=== PATIENT | male | born 1970 | race African-American/Black ===

== ENCOUNTER 2016-07-07 17:53 | Emergency (ER) | payer OTHER ==
[~2016-07-07] VITALS: Ht 177.8 cm; Wt 72.0 kg
[2016-07-07 18:07] VITALS: PULSE 83; RESP 18; TEMP 98.3; O2SAT 99
[2016-07-07] MEDS ORDERED: FERR1TAB36 PO (18:17)
[2016-07-07] MEDS ORDERED: FOLI5CAP PO (18:17)
--- NOTE | 2016-07-07 18:18 | PD ---
HPI Chief Complaint: [place] Act/ Suicidal Attempt Time Seen by Provider: 18:09 Travel History International Travel<30 days: No Contact w/Intl Traveler<30days: No Traveled to known affect area: No History of Present Illness HPI 45-year-old male brought into the emergency department under the [place] act. Patient was said to be found hanging in a motel room trying to choke himself with a bedsheet. Patient was reported by his sister and police responded. Patient found him attempting a himself and gasping for breath. Patient has history of sickle cell anemia but has not had a problem with that in "a long time". He does smoke marijuana but not cigarettes and does not drink alcohol. Patient denies suicidal ideations at this time. He denies any specific medical problems currently other than recent cough productive of clear mucus. He only takes iron and folic acid. He takes no other medications. He has no known drug allergies. [facility] Social History Alcohol Use: No Tobacco Use: No Substance Use: No Allergies-Medications (Allergen,Severity, Reaction): Coded Allergies: No Known Allergies (Unverified , 07/07/16) Reported Meds & Prescriptions Reported Meds & Active Scripts Active Reported Iron (Ferrous Sulfate) 325 Mg Tab 325 Mg PO DAILY Take Folic Acid 5 Mg Cap 1 Mg PO DAILY Review of Systems General / Constitutional: No: Fever, Chills Eyes: No: Visual changes HENT: No: Headaches Cardiovascular: No: Chest Pain or Discomfort Respiratory: No: Shortness of Breath Gastrointestinal: No: Abdominal Pain Genitourinary: No: Dysuria Musculoskeletal: No: Pain Skin: No Rash Neurologic: No: Weakness Psychiatric: Positive: Depression, Suicidal Ideations Endocrine: No: Polydipsia Hematologic/Lymphatic: No: Easy Bruising Physical Exam Narrative GENERAL: Patient appears in no medical distress. Relatively cooperative. SKIN: Warm and dry. Normal color. Normal turgor. Neck appears normal. No obvious signs of trauma. HEAD: Atraumatic. Normocephalic. EYES: Pupils equal and round. No scleral icterus. No injection or drainage. ENT: No nasal bleeding or discharge. Mucous membranes pink and moist. Pharynx is clear. Airway is patent. NECK: Trachea midline. No JVD. No bony tenderness or step-off. Range of motion is full without pain. CARDIOVASCULAR: Regular rate and rhythm. RESPIRATORY: No accessory muscle use. Clear to auscultation. Breath sounds equal bilaterally. GASTROINTESTINAL: Abdomen soft, non-tender, nondistended. Hepatic and splenic margins not palpable. MUSCULOSKELETAL: Extremities without clubbing, cyanosis, or edema. No obvious deformities. NEUROLOGICAL: Awake and alert. No obvious cranial nerve deficits. Motor grossly within normal limits. Five out of 5 muscle strength in the arms and legs. Normal speech. PSYCHIATRIC: Appropriate mood and affect; insight and judgment normal. Data Data Last Documented VS Vital Signs Date Time Temp Pulse Resp B/P Pulse Ox O2 Delivery O2 Flow Rate FiO2 07/07/16 18:07 98.3 83 18 99 Orders Complete Blood Count With Diff (07/07/16 18:59) Comprehensive Metabolic Panel (07/07/16 18:59) Psych Screen (07/07/16 18:59) Drug Screen, Random Urine (07/07/16 18:59) Diet Regular Basic (07/07/16 Dinner) Chest, Single Ap (07/07/16 19:39) Alcohol (Ethanol) (07/07/16 22:06) Ct Thorax/ Chest W Iv Contrast (07/07/16 22:34) Cta Neck W Iv Contrast W 3d (07/07/16 ) Labs Laboratory Tests Test 07/07/16 19:40 White Blood Count 14.0 TH/MM3 Red Blood Count 3.76 MIL/MM3 Hemoglobin 11.4 GM/DL Hematocrit 31.9 % Mean Corpuscular Volume 84.8 FL Mean Corpuscular Hemoglobin 30.2 PG Mean Corpuscular Hemoglobin 35.6 % Concent Red Cell Distribution Width 15.0 % Platelet Count 357 TH/MM3 Mean Platelet Volume 8.2 FL Neutrophils (%) (Auto) 70.4 % Lymphocytes (%) (Auto) 20.3 % Monocytes (%) (Auto) 8.4 % Eosinophils (%) (Auto) 0.3 % Basophils (%) (Auto) 0.6 % Neutrophils # (Auto) 9.9 TH/MM3 Lymphocytes # (Auto) 2.8 TH/MM3 Monocytes # (Auto) 1.2 TH/MM3 Eosinophils # (Auto) 0.0 TH/MM3 Basophils # (Auto) 0.1 TH/MM3 CBC Comment DIFF FINAL Differential Comment Sodium Level 138 MEQ/L Potassium Level 3.2 MEQ/L Chloride Level 104 MEQ/L Carbon Dioxide Level 27.0 MEQ/L Anion Gap 7 MEQ/L Blood Urea Nitrogen 5 MG/DL Creatinine 1.22 MG/DL Estimat Glomerular Filtration 78 ML/MIN Rate Random Glucose 102 MG/DL Calcium Level 9.1 MG/DL Total Bilirubin 1.2 MG/DL Aspartate Amino Transf 15 U/L (AST/SGOT) Alanine Aminotransferase 21 U/L (ALT/SGPT) Alkaline Phosphatase 72 U/L Total Protein 8.8 GM/DL Albumin 4.5 GM/DL Urine Opiates Screen NEG Urine Barbiturates Screen NEG Urine Amphetamines Screen NEG Urine Benzodiazepines Screen NEG Urine Cocaine Screen POS Urine Cannabinoids Screen POS Ethyl Alcohol Level LESS THAN 3 MG/DL MDM Medical Decision Making Medical Screen Exam Complete: Yes Emergency Medical Condition: Yes Differential Diagnosis [place] act. Suicidal ideation. Reported Suicidal attempt. Narrative Course Patient is medically stable at time of exam. Psychiatric Labs ordered per protocol. Patient is medically cleared for psychiatric evaluation. Chest x-ray was performed as the patient has had a cough. Chest x-ray shows possible consolidation in the right upper lung. Per radiologist. I feel this is probably due to his previous TB history which has been treated, and I do not feel he has active TB at this time. CBC does show a mild leukocytosis with, the patient with his history. I do not think he warrants antibiotics based on his history and physical. CMP is unremarkable. Patient was discussed with Dr. Urbina who recommends CTA of the neck to evaluate previous strangulation attempt, and CT with IV contrast of the chest to evaluate findings. Urine drug screen is positive for cocaine and marijuana. Serum alcohol is less than 0.03 2300 hrs. patient care is assumed by Dr. Urbina. CTA and CT are pending. Diagnosis Primary Impression: Suicidal behavior with attempted self-injury Additional Impression: Medical clearance for psychiatric admission Condition: Stable Ha Bruner Jul 07, 2016 18:18
[2016-07-07 20:16] LABS: AUTOMATED NEUTROPHIL # 9.9 TH/MM3 (1.8-7.7); BASOPHIL # 0.1 TH/MM3 (0-0.2); BASOPHIL % 0.6 % (0.0-2.0); EOSINOPHIL % 0.3 % (0.0-4.0); HEMATOCRIT 31.9 % (39.0-51.0); HEMO FLAGS DIFF FINAL; LYMPH % 20.3 % (9.0-44.0); LYMPHOCYTE # 2.8 TH/MM3 (1.0-4.8); MEAN CELL VOLUME 84.8 FL (80.0-100.0); MEAN CORPUSCULAR HEMOGLOBIN 30.2 PG (27.0-34.0); MEAN CORPUSCULAR HGB CONC 35.6 % (32.0-36.0); MONO % 8.4 % (0.0-8.0); NEUT % 70.4 % (16.0-70.0); PLATELET COUNT 357 TH/MM3 (150-450); RED BLOOD COUNT 3.76 MIL/MM3 (4.50-5.90)
[2016-07-07 20:32] LABS: AMPHETAMINE, URINE NEG (NEG); BARBITURATES, URINE NEG (NEG); COCAINE, URINE POS (NEG)
[2016-07-07 20:38] LABS: ANION GAP 7 MEQ/L (5-15); AST (GOT) 15 U/L (15-37); BLOOD UREA NITROGEN 5 MG/DL (7-18); CHLORIDE 104 MEQ/L (98-107); GLOMERULAR FILTRATION RATE 78 ML/MIN (>89); POTASSIUM 3.2 MEQ/L (3.5-5.1); SODIUM (NA) 138 MEQ/L (136-145)
[2016-07-07 20:41] LABS: ALKALINE PHOSPHATASE 72 U/L (45-117); ALT (GPT) 21 U/L (12-78); TOTAL BILIRUBIN ADULT 1.2 MG/DL (0.2-1.0)
--- NOTE | 2016-07-07 21:23 | RADRPT ---
EXAM DATE/TIME: 07/07/2016 20:22 [facility] COMPARISON: No previous studies available for comparison. INDICATIONS : Patient complains of cough. MEDICAL HISTORY : Sickle cell anemia. SURGICAL HISTORY : None. ENCOUNTER: Initial ACUITY: 3 days PAIN SCORE: 0/10 LOCATION: Chest FINDINGS: The heart size is normal. There is increased density seen at the right upper lung. The left lung is clear. No effusion is seen. CONCLUSION: Increased density in the right upper lung likely representing an area of consolidatio n. This is a potential location of aspiration. Ruiz Stevenson MD on July 07, 2016 at 21:10 Board Certified Radiologist. This report was verified electronically.
[2016-07-07 23:30] VITALS: BP 124/72; PULSE 80; RESP 14; O2SAT 96
[2016-07-07] MEDS ORDERED: IOHEXOL 350 MG/ML 10 ML VIAL (for RAD DIAG) IV ONE (23:58)
[2016-07-08] MEDS ORDERED: IOHEXOL 350 MG/ML 10 ML VIAL (for RAD DIAG) IV ONE (00:05)
--- NOTE | 2016-07-08 00:34 | RADRPT ---
EXAM DATE/TIME: 07/08/2016 00:09 [facility] COMPARISON: No previous studies available for comparison. INDICATIONS : Shortness of breath; history of TB; rule out pneumonia. IV CONTRAST: 75 cc Omnipaque 350 (iohexol) IV ; Cumulative dose for multiple exams. RADIATION DOSE: 6.93 CTDIvol (mGy) MEDICAL HISTORY : Non-responsive. SURGICAL HISTORY : Non-responsive. ENCOUNTER: Initial ACUITY: 1 day PAIN SCALE: 0/10 LOCATION: chest TECHNIQUE: Volumetric scanning of the chest was performed. Using automated exposure control and adjustment of t he mA and/or kV according to patient size, radiation dose was kept as low as reasonably achievable to obtain optimal diagnostic quality images. FINDINGS: Chronic appearing consolidation, scarring and volume loss seen in the right upper lobe. There is asso ciated traction bronchiectasis and cavitation up to 3.7 cm in size. The sequela of tuberculosis would certainly be in the differential. Active TB not excludable. In the right lower lobe, a 9 mm nodule i s present. In the right middle lobe, and there is mild infiltrate seen on series 3 or 3 image 40. The left lung is clear. No pleural effusion or pneumothorax seen on either side. There is no mediastinal or hilar lymphadenopathy demonstrated. Heart size normal. Upper abdomen only partly included on this study. The liver is enlarged. The spleen is small and of m arked heterogeneous attenuation including very bright density present. Multiple low attenuation samuel s are seen in the spleen measuring up to 3 cm in size. There is marked diffuse thyroid goiter. Left lobe has a heterogeneous mass with macrocalcifications a nd measures at least 4.9 cm in size. CONCLUSION: 1. Mostly chronic during right upper lobe changes as described above, could be the sequela of previou s tuberculosis. Active TB not excludable. 2. Mild, nonspecific infiltrate in the right middle lobe. 3. There is a 9 mm right lower lobe pulmonary nodule, nonspecific. Followup noncontrast chest CT rosanna mmended in approximately 4-6 months for recheck. 4. Abnormal small spleen of diffusely heterogeneous increased attenuation has differential including sickle cell anemia changes and iron deposition. Superimposed on this are innumerable low attenuation masses, most of them just a few millimeters but several measuring between one and 3 cm in size. The s plenic masses are nonspecific but most likely benign. Correlation for the possibility of abscesses an d microabscesses recommended. 5. Enlarged thyroid typical of a multinodular goiter. A very large, heterogeneous mass with macrocalc ifications seen in the left lobe. Thyroid ultrasound recommended non-emergently for further character ization. Ruiz Bacon MD on July 08, 2016 at 0:26 Board Certified Radiologist. This report was verified electronically.
--- NOTE | 2016-07-08 00:56 | RADRPT ---
EXAM DATE/TIME: 07/08/2016 00:05 [facility] COMPARISON: No previous studies available for comparison. INDICATIONS : Attempted strangulation. IV CONTRAST: 75 cc Omnipaque 350 (iohexol) IV ; Cumulative dose for multiple exams. RADIATION DOSE: 15.68 CTDIvol (mGy) MEDICAL HISTORY : prior TB SURGICAL HISTORY : Non-responsive. ENCOUNTER: Initial ACUITY: 1 day PAIN SCALE: 0/10 LOCATION: neck Elevated flow velocities and ICA/CCA ratios have been found to correlate with increased degrees of vessel stenosis, calculated as percentage of diameter relative to a normal segment of distal ICA/CCA. TECHNIQUE: Volumetric scanning was performed using a multirow detector CT scanner. The data was post processed with a variety of visualization algorithms including full-volume maximum intensity projection, multip lanar sliding thin-slab reformation, curved-planar reformation, and surface-rendering techniques. Us ing automated exposure control and adjustment of the mA and/or kV according to patient size, radiatio n dose was kept as low as reasonably achievable to obtain optimal diagnostic quality images. FINDINGS: AORTIC ARCH: There is a 2 vessel origin off of the arch. A common trunk gives rise to the right subclavian, right common carotid and left common carotid and then the left subclavian coming off later. RIGHT CAROTID: The common carotid artery is intact. The carotid bulb has a normal configuration without ulceration o r narrowing. The internal carotid artery lumen is smooth without stenosis. The external carotid delvis ry is intact. LEFT CAROTID: The common carotid artery is intact. The carotid bulb has a normal configuration without ulceration or narrowing. The internal carotid artery lumen is smooth without stenosis. The external carotid ar duane is intact. VERTEBRALS: The vertebral arteries have a symmetric diameter. No stenotic lesions are seen. There is multinodular goiter of the thyroid, diffuse but left lobe worse than right. There is as sociated displacement of the trachea to the right. There are numerous macrocalcifications of the left lobe and also a few on the right. CONCLUSION: 1. Normal carotid arteries and other neck vessels. 2. Incidentally seen anatomic variant arch vessel origins as above. 3. Multinodular goiter with macrocalcifications of the thyroid gland. Further characterization with n onemergent thyroid ultrasound recommended. Ruiz Bacon MD on July 08, 2016 at 0:50 Board Certified Radiologist. This report was verified electronically.
[2016-07-08] MEDS ORDERED: AZIT250T3 PO (01:26)
--- NOTE | 2016-07-08 01:26 | PD ---
Physical Exam Exam Limitations: Poor Historian Narrative GENERAL: Well-nourished, well-developed patient. SKIN: Warm and dry. HEAD: Normocephalic and atraumatic. EYES: No injection or drainage. ENT: No nasal drainage noted. NECK: Supple, trachea midline. CARDIOVASCULAR: Regular rate and rhythm RESPIRATORY: Breath sounds equal bilaterally. No accessory muscle use. NEUROLOGICAL: Awake and alert. Moves all extremities. Normal speech. Data Data Last Documented VS Vital Signs Date Time Temp Pulse Resp B/P Pulse Ox O2 Delivery O2 Flow Rate FiO2 07/09/16 02:53 83 18 113/57 98 07/08/16 18:34 98.6 Orders Complete Blood Count With Diff (07/07/16 18:59) Comprehensive Metabolic Panel (07/07/16 18:59) Psych Screen (07/07/16 18:59) Drug Screen, Random Urine (07/07/16 18:59) Diet Regular Basic (07/07/16 Dinner) Chest, Single Ap (07/07/16 19:39) Alcohol (Ethanol) (07/07/16 22:06) Ct Thorax/ Chest W Iv Contrast (07/07/16 22:34) Cta Neck W Iv Contrast W 3d (07/07/16 ) Iohexol 350 Inj (Omnipaque 350 Inj) (07/07/16 23:58) Azithromycin Inj (Zithromax Inj) (07/08/16 01:30) Diet Regular Basic (07/08/16 Breakfast) Tuberculin Ppd Inj (Ppd Inj) (07/08/16 11:00) Consult Hospitalist (07/08/16 ) Azithromycin (Zithromax) (07/09/16 09:00) (Hub Use Only)Inp Phy Cons/Ref (07/08/16 ) Diet Regular Basic (07/08/16 Dinner) Iohexol 350 Inj (Omnipaque 350 Inj) (07/08/16 00:05) Labs Laboratory Tests Test 07/07/16 19:40 White Blood Count 14.0 TH/MM3 Red Blood Count 3.76 MIL/MM3 Hemoglobin 11.4 GM/DL Hematocrit 31.9 % Mean Corpuscular Volume 84.8 FL Mean Corpuscular Hemoglobin 30.2 PG Mean Corpuscular Hemoglobin 35.6 % Concent Red Cell Distribution Width 15.0 % Platelet Count 357 TH/MM3 Mean Platelet Volume 8.2 FL Neutrophils (%) (Auto) 70.4 % Lymphocytes (%) (Auto) 20.3 % Monocytes (%) (Auto) 8.4 % Eosinophils (%) (Auto) 0.3 % Basophils (%) (Auto) 0.6 % Neutrophils # (Auto) 9.9 TH/MM3 Lymphocytes # (Auto) 2.8 TH/MM3 Monocytes # (Auto) 1.2 TH/MM3 Eosinophils # (Auto) 0.0 TH/MM3 Basophils # (Auto) 0.1 TH/MM3 CBC Comment DIFF FINAL Differential Comment Sodium Level 138 MEQ/L Potassium Level 3.2 MEQ/L Chloride Level 104 MEQ/L Carbon Dioxide Level 27.0 MEQ/L Anion Gap 7 MEQ/L Blood Urea Nitrogen 5 MG/DL Creatinine 1.22 MG/DL Estimat Glomerular Filtration 78 ML/MIN Rate Random Glucose 102 MG/DL Calcium Level 9.1 MG/DL Total Bilirubin 1.2 MG/DL Aspartate Amino Transf 15 U/L (AST/SGOT) Alanine Aminotransferase 21 U/L (ALT/SGPT) Alkaline Phosphatase 72 U/L Total Protein 8.8 GM/DL Albumin 4.5 GM/DL Urine Opiates Screen NEG Urine Barbiturates Screen NEG Urine Amphetamines Screen NEG Urine Benzodiazepines Screen NEG Urine Cocaine Screen POS Urine Cannabinoids Screen POS Ethyl Alcohol Level LESS THAN 3 MG/DL [facility] Supervised Visit with TANIKA: Yes Interpretation(s) Last [address] 07/07/164 Signed Impressions: Service Date/Time: Friday, July 08, 2016 00:09 - CONCLUSION: 1. Mostly chronic during right upper lobe changes as described above, could be the sequela of previous tuberculosis. Active TB not excludable. 2. Mild, nonspecific infiltrate in the right middle lobe. 3. There is a 9 mm right lower lobe pulmonary nodule, nonspecific. Followup noncontrast chest CT recommended in approximately 4-6 months for recheck. 4. Abnormal small spleen of diffusely heterogeneous increased attenuation has differential including sickle cell anemia changes and iron deposition. Superimposed on this are innumerable low attenuation masses, most of them just a few millimeters but several measuring between one and 3 cm in size. The splenic masses are nonspecific but most likely benign. Correlation for the possibility of abscesses and microabscesses recommended. 5. Enlarged thyroid typical of a multinodular goiter. A very large , heterogeneous mass with macrocalcifications seen in the left lobe. Thyroid ultrasound recommended non-emergently for further characterization. Ruiz Bacon MD Chest X-Ray 07/07/16 1939 Signed Impressions: Service Date/Time: Thursday, July 07, 2016 20:22 - CONCLUSION: Increased density in the right upper lung likely representing an area of consolidation. This is a potential location of aspiration. Ruiz Stevenson MD Neck CTA 07/07/16 0000 Signed Impressions: Service Date/Time: Friday, July 08, 2016 00:05 - CONCLUSION: 1. Normal carotid arteries and other neck vessels. 2. Incidentally seen anatomic variant arch vessel origins as above. 3. Multinodular goiter with macrocalcifications of the thyroid gland. Further characterization with nonemergent thyroid ultrasound recommended. Ruiz Bacon MD CBC & BMP Diagram 07/07/16 19:40 Narrative Course I, Dr. patrick, have reviewed the advance practice practitioner's documentation and am in agreement, met with the patient face to face, made the diagnosis, and the medical decision making was done by me. *My assessment and Findings: 45-year-old male who presents with possible hanging attempt without loss of consciousness per staff report. Patient denies this but is poor historian. He does note prior history of tuberculosis in his chest x-ray shows possible right upper quadrant mass without prior for comparison. CT chest and CT injury of neck added on for further testing. CT chest shows likely chronic tuberculosis and mild right middle lobe infection. He'll be placed on azithromycin and is medically cleared for psychiatric disposition. Diagnosis Primary Impression: Suicidal behavior with attempted self-injury Additional Impressions: Medical clearance for psychiatric admission Pneumonia Qualified Code: J18.9 - Pneumonia due to infectious organism, unspecified laterality, unspecified part of lung Additional Instruction: Take antibiotic as directed, follow with infectious disease as an outpatient, set up a primary care physician Med/Other Pt SpecificInfo: Prescription(s) given Scripts Azithromycin 250 Mg [id number] Mg PO DAILY #4 TAB Ref 0 first dose 07/09 Prov:Elsa Patrick MD 07/08/16 Condition: Stable Elsa Patrick MD Jul 08, 2016 01:26
[2016-07-08] MEDS ORDERED: AZITHROMYCIN INJ 500 MG in SODIUM CHLOR 0.9% 250 ML INJ 250 ML IV ONE (01:30)
[2016-07-08 03:30] VITALS: BP 119/67; PULSE 87; RESP 16; O2SAT 97
--- NOTE | 2016-07-08 10:54 | PD ---
Data Data Last Documented VS Vital Signs Date Time Temp Pulse Resp B/P Pulse Ox O2 Delivery O2 Flow Rate FiO2 07/08/16 03:30 87 16 119/67 97 07/07/16 18:07 98.3 Orders Complete Blood Count With Diff (07/07/16 18:59) Comprehensive Metabolic Panel (07/07/16 18:59) Psych Screen (07/07/16 18:59) Drug Screen, Random Urine (07/07/16 18:59) Diet Regular Basic (07/07/16 Dinner) Chest, Single Ap (07/07/16 19:39) Alcohol (Ethanol) (07/07/16 22:06) Ct Thorax/ Chest W Iv Contrast (07/07/16 22:34) Cta Neck W Iv Contrast W 3d (07/07/16 ) Iohexol 350 Inj (Omnipaque 350 Inj) (07/07/16 23:58) Azithromycin Inj (Zithromax Inj) (07/08/16 01:30) Diet Regular Basic (07/08/16 Breakfast) Isolation 08,20 (07/08/16 10:39) Tuberculin Ppd Inj (Ppd Inj) (07/08/16 11:00) Consult Hospitalist (07/08/16 ) Azithromycin (Zithromax) (07/09/16 09:00) (Hub Use Only)Inp Phy Cons/Ref (07/08/16 ) Labs Laboratory Tests Test 07/07/16 19:40 White Blood Count 14.0 TH/MM3 Red Blood Count 3.76 MIL/MM3 Hemoglobin 11.4 GM/DL Hematocrit 31.9 % Mean Corpuscular Volume 84.8 FL Mean Corpuscular Hemoglobin 30.2 PG Mean Corpuscular Hemoglobin 35.6 % Concent Red Cell Distribution Width 15.0 % Platelet Count 357 TH/MM3 Mean Platelet Volume 8.2 FL Neutrophils (%) (Auto) 70.4 % Lymphocytes (%) (Auto) 20.3 % Monocytes (%) (Auto) 8.4 % Eosinophils (%) (Auto) 0.3 % Basophils (%) (Auto) 0.6 % Neutrophils # (Auto) 9.9 TH/MM3 Lymphocytes # (Auto) 2.8 TH/MM3 Monocytes # (Auto) 1.2 TH/MM3 Eosinophils # (Auto) 0.0 TH/MM3 Basophils # (Auto) 0.1 TH/MM3 CBC Comment DIFF FINAL Differential Comment Sodium Level 138 MEQ/L Potassium Level 3.2 MEQ/L Chloride Level 104 MEQ/L Carbon Dioxide Level 27.0 MEQ/L Anion Gap 7 MEQ/L Blood Urea Nitrogen 5 MG/DL Creatinine 1.22 MG/DL Estimat Glomerular Filtration 78 ML/MIN Rate Random Glucose 102 MG/DL Calcium Level 9.1 MG/DL Total Bilirubin 1.2 MG/DL Aspartate Amino Transf 15 U/L (AST/SGOT) Alanine Aminotransferase 21 U/L (ALT/SGPT) Alkaline Phosphatase 72 U/L Total Protein 8.8 GM/DL Albumin 4.5 GM/DL Urine Opiates Screen NEG Urine Barbiturates Screen NEG Urine Amphetamines Screen NEG Urine Benzodiazepines Screen NEG Urine Cocaine Screen POS Urine Cannabinoids Screen POS Ethyl Alcohol Level LESS THAN 3 MG/DL MDM Supervised Visit with TANIKA: No Narrative Course Was approached by nursing is the patient is to be admitted to psychiatry plan is for fourth floor. The psychiatry team has concerns about the CT reading: Last [address] 07/07/[id number] Signed Impressions: Service Date/Time: Friday, July 08, 2016 00:09 - CONCLUSION: 1. Mostly chronic during right upper lobe changes as described above, could be the sequela of previous tuberculosis. Active TB not excludable. 2. Mild, nonspecific infiltrate in the right middle lobe. 3. There is a 9 mm right lower lobe pulmonary nodule, nonspecific. Followup noncontrast chest CT recommended in approximately 4-6 months for recheck. 4. Abnormal small spleen of diffusely heterogeneous increased attenuation has differential including sickle cell anemia changes and iron deposition. Superimposed on this are innumerable low attenuation masses, most of them just a few millimeters but several measuring between one and 3 cm in size. The splenic masses are nonspecific but most likely benign. Correlation for the possibility of abscesses and microabscesses recommended. 5. Enlarged thyroid typical of a multinodular goiter. A very large , heterogeneous mass with macrocalcifications seen in the left lobe. Thyroid ultrasound recommended non-emergently for further characterization. Ruiz Bacon MD Chest X-Ray 07/07/[id number] Signed Impressions: Service Date/Time: Thursday, July 07, 2016 20:22 - CONCLUSION: Increased density in the right upper lung likely representing an area of consolidation. This is a potential location of aspiration. Ruiz Stevenson MD Neck CTA 07/07/16 0000 Signed Impressions: Service Date/Time: Friday, July 08, 2016 00:05 - CONCLUSION: 1. Normal carotid arteries and other neck vessels. 2. Incidentally seen anatomic variant arch vessel origins as above. 3. Multinodular goiter with macrocalcifications of the thyroid gland. Further characterization with nonemergent thyroid ultrasound recommended. Ruiz Bacon MD Patient was seen and examined by me very briefly, he does have a history of tuberculosis which is been treated. I do not see any symptoms of active tuberculosis in this patient. I think that the fourth floor is appropriate for him and they are trying to find a rest stress relation room for him. I have placed an order for respiratory isolation here. However I doubt that he has active tuberculosis. Dr. Grove is been consultation from [facility] for medical management of possible tuberculosis Diagnosis Primary Impression: Suicidal behavior with attempted self-injury Additional Impressions: Medical clearance for psychiatric admission Pneumonia Admitting Information Admitting Physician Requests: Admit Scripts Azithromycin 250 Mg [id number] Mg PO DAILY #4 TAB Ref 0 first dose 07/09 Prov:Elsa Urbina MD 07/08/16 Condition: Stable Napoleon Novoa MD Jul 08, 2016 10:54
[2016-07-08] MEDS ORDERED: TUBERCULIN, PPD 5 UNITS/0.1 ML SYRINGE I-DERMAL ONE (11:00)
--- NOTE | 2016-07-08 11:48 | PD.CONS ---
HPI Service [facility] Consult Requested By Reason for Consult CT findings of right upper lobe granuloma in setting of TB history Primary Care Physician No Primary Care Physician Diagnoses: (1) Suicidal behavior with attempted self-injury History of Present Illness Mr. Coates is a 45 year old male. He is here after a suicide attempt. When seen he is feeling more at baseline and not reporting suicidality. I am consulted to address a finding on CT of a granulomatous finding at the right upper lobe. 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 No cough of fevers reported. PPD is positive for life and was last positive about two years ago. The positive PPD does not reflect active disease. Active disease would be based on symptoms and he has no acute symptoms to suggest active disease at this time. No other health complaints. He has sickle cell anemia and had a crisis last about 1 year ago. Finding of a right sided middle lobe infiltrate might suggest early pneumonia so treatment is started in the ER for this. The findings of the middle lobe infiltrate are not consistent with a TB infection appearance. Review of Systems Constitutional: DENIES: Fever, Weight loss, Chills Endocrine: DENIES: Heat/cold intolerance Eyes: DENIES: Photosensitivity, Double Vision Ears, nose, mouth, throat: DENIES: Hearing loss, Throat pain, Ear Pain Respiratory: DENIES: Cough, Wheezing, Hemoptysis, Sputum production, Shortness of breath Cardiovascular: DENIES: Chest pain, Palpitations Gastrointestinal: DENIES: Abdominal pain, Black stools Musculoskeletal: DENIES: Joint pain, Muscle aches, Stiffness, Joint Swelling Integumentary: DENIES: Abnormal pigmentation Hematologic/lymphatic: DENIES: Bruising Immunologic/allergic: DENIES: Eczema Neurologic: DENIES: Abnormal gait Psychiatric: DENIES: Anxiety, Confusion Past Family Social History Allergies: Coded Allergies: No Known Allergies (Unverified , 07/07/16) Past Medical History Sickle Cell Anemia Hx of TB (treated/cured 20 years ago) Past Surgical History none Reported Medications Reported Meds & Active Scripts Active Azithromycin 250 Mg Tab 250 Mg PO DAILY first dose 07/09 Reported Iron (Ferrous Sulfate) 325 Mg Tab 325 Mg PO DAILY Take Folic Acid 5 Mg Cap 1 Mg PO DAILY Family History none Social History No smoking No alcohol No drug abuse Physical Exam Vital Signs Vital Signs Date Time Temp Pulse Resp B/P Pulse Ox O2 Delivery O2 Flow Rate FiO2 07/08/16 03:30 87 16 119/67 97 07/07/16 23:30 80 14 124/72 96 07/07/16 18:07 98.3 83 18 99 Physical Exam GENERAL: NAD, A&Ox3 SKIN: Warm and dry. HEAD: Normocephalic. EYES: No scleral icterus. No injection or drainage. NECK: Supple, trachea midline. No JVD or lymphadenopathy. CARDIOVASCULAR: Regular rate and rhythm without murmurs, gallops, or rubs. RESPIRATORY: Breath sounds equal bilaterally. No accessory muscle use. Clear to auscultation bilaterally. GASTROINTESTINAL: Abdomen soft, non-tender, nondistended. MUSCULOSKELETAL: No cyanosis, or edema. BACK: Nontender without obvious deformity. No CVA tenderness. Laboratory Laboratory Tests Test 07/07/16 19:40 White Blood Count 14.0 Red Blood Count 3.76 Hemoglobin 11.4 Hematocrit 31.9 Mean Corpuscular Volume 84.8 Mean Corpuscular Hemoglobin 30.2 Mean Corpuscular Hemoglobin 35.6 Concent Red Cell Distribution Width 15.0 Platelet Count 357 Mean Platelet Volume 8.2 Neutrophils (%) (Auto) 70.4 Lymphocytes (%) (Auto) 20.3 Monocytes (%) (Auto) 8.4 Eosinophils (%) (Auto) 0.3 Basophils (%) (Auto) 0.6 Neutrophils # (Auto) 9.9 Lymphocytes # (Auto) 2.8 Monocytes # (Auto) 1.2 Eosinophils # (Auto) 0.0 Basophils # (Auto) 0.1 CBC Comment DIFF FINAL Differential Comment Sodium Level 138 Potassium Level 3.2 Chloride Level 104 Carbon Dioxide Level 27.0 Anion Gap 7 Blood Urea Nitrogen 5 Creatinine 1.22 Estimat Glomerular Filtration 78 Rate Random Glucose 102 Calcium Level 9.1 Total Bilirubin 1.2 Aspartate Amino Transf 15 (AST/SGOT) Alanine Aminotransferase 21 (ALT/SGPT) Alkaline Phosphatase 72 Total Protein 8.8 Albumin 4.5 Urine Opiates Screen NEG Urine Barbiturates Screen NEG Urine Amphetamines Screen NEG Urine Benzodiazepines Screen NEG Urine Cocaine Screen POS Urine Cannabinoids Screen POS Ethyl Alcohol Level LESS THAN 3 Result Diagram: 07/07/16193907/07/161939 Imaging Last Impressions Chest CT 07/07/162233 Signed Impressions: Service Date/Time: Friday, July 08, 2016 00:09 - CONCLUSION: 1. Mostly chronic during right upper lobe changes as described above, could be the sequela of previous tuberculosis. Active TB not excludable. 2. Mild, nonspecific infiltrate in the right middle lobe. 3. There is a 9 mm right lower lobe pulmonary nodule, nonspecific. Followup noncontrast chest CT recommended in approximately 4-6 months for recheck. 4. Abnormal small spleen of diffusely heterogeneous increased attenuation has differential including sickle cell anemia changes and iron deposition. Superimposed on this are innumerable low attenuation masses, most of them just a few millimeters but several measuring between one and 3 cm in size. The splenic masses are nonspecific but most likely benign. Correlation for the possibility of abscesses and microabscesses recommended. 5. Enlarged thyroid typical of a multinodular goiter. A very large , heterogeneous mass with macrocalcifications seen in the left lobe. Thyroid ultrasound recommended non-emergently for further characterization. Ruiz Bacon MD Chest X-Ray 07/07/16 1939 Signed Impressions: Service Date/Time: Thursday, July 07, 2016 20:22 - CONCLUSION: Increased density in the right upper lung likely representing an area of consolidation. This is a potential location of aspiration. Ruiz Stevenson MD Neck CTA 07/07/16 0000 Signed Impressions: Service Date/Time: Friday, July 08, 2016 00:05 - CONCLUSION: 1. Normal carotid arteries and other neck vessels. 2. Incidentally seen anatomic variant arch vessel origins as above. 3. Multinodular goiter with macrocalcifications of the thyroid gland. Further characterization with nonemergent thyroid ultrasound recommended. Ruiz Bacon MD Assessment and Plan Problem List: (1) Suicidal behavior with attempted self-injury ICD Code: T14.91 Status: Acute Plan: Psychiatry evaluation pending Monitor for safety right now Possible underlying depression (2) Sickle cell anemia ICD Code: D57.1 Status: Chronic Plan: No crisis symptoms for one year Follow clinically Work up further for acute joint pains, acute dyspnea, or worsening symptomatic anemia. (3) Hx of tuberculosis ICD Code: Z86.11 Status: Resolved Plan: Follow clinically Fevers, chronic productive cough, or hemoptysis would indicate AFB culture testing No concerns for active TB at this time No further work up needed at this point (4) Pneumonia ICD Code: J18.9 Status: Acute Plan: Pattern on imaging not suggestive of a TB origin Early finding, may be pneumonitis related to suicide attempt if not early pneumonia Azithromycin for 5 days Mulugeta Grove MD Jul 08, 2016 11:48
[2016-07-08 17:02] VITALS: BP 127/70; PULSE 65; RESP 20; TEMP 97.6; O2SAT 96
[2016-07-08 18:34] VITALS: BP 108/58; PULSE 68; RESP 16; TEMP 98.6; O2SAT 98
[2016-07-08 22:09] VITALS: BP 112/62; PULSE 84; RESP 18; O2SAT 98
[2016-07-09 02:53] VITALS: BP 113/57; PULSE 83; RESP 18; O2SAT 98
[2016-07-09] MEDS ORDERED: AZITHROMYCIN 250 MG TAB PO SCH (09:00)
--- NOTE | 2016-07-09 12:22 | PD.CONS ---
Provisional Diagnosis Admission Date [place] I. Substance induced mood disorder, cocaine and cannabis use disorder, adjustment disorder with depressed mood [place] II. Antisocial personality disorder [place] III. sickle ce [place] IV. Multiple incarcerations [place] V. 55 History of Present Illness Service Psychiatry Consult Requested By Primary Care Physician No Primary Care Physician HPI The patient is a 45-year-old man, domicile with his brother in [place], employed in maintenance, divorce, without any previous psychiatric history, no previous suicidal attempts, cocaine and cannabis use disorder, history of incarcerations, released from the 2 years incarcerations a month ago , medical history of sickle cell anemia, who was brought into the emergency department under the [place] act. Patient was said to be found hanging in a motel room trying to choke himself with a bedsheet. Patient was reported by his sister and police responded. Patient found him attempting a himself and gasping for breath. On somatic evaluation today the patient is calm and cooperative, he explains that yesterday he was just manipulating his family "I did not really wanted to , I just wanted to make my point". He says that he was high on cocaine and cannabis. He was recently released from the 2 years incarcerations "due to aggressive behavior", he has been working in maintenance , "but short of money, my family doesn't want help, I was just trying to manipulate and yesterday". At this moment the patient denies depressive symptoms, he denies anxiety, he denies bunny, he denies perceptual disturbances. He denies suicidal and homicidal ideation. He denies visual and auditory hallucinations. He is future oriented, oriented 3, during longitudinal observation no aggressive behavior, no agitation, no hostility reported. Patient reports basically daily use of cocaine and cannabis, denies alcohol use. Review of Systems Constitutional: DENIES: Diaphoretic episodes, Fatigue, Fever, Weight gain, Weight loss, Chills, Dizziness, Change in appetite, Night Sweats Endocrine: DENIES: Heat/cold intolerance, Polydipsia, Polyuria, Polyphagia Eyes: DENIES: Blurred vision, Diplopia, Eye inflammation, Eye pain, Vision loss , Photosensitivity, Double Vision Ears, nose, mouth, throat: DENIES: Tinnitus, Hearing loss, Vertigo, Nasal discharge, Oral lesions, Throat pain, Hoarseness, Ear Pain, Running Nose, Epistaxis, Sinus Pain, Toothache, Odynophagia Cardiovascular: DENIES: Chest pain, Palpitations, Syncope, Dyspnea on Exertion , PND, Lower Extremity Edema, Orthopnea, Claudication Gastrointestinal: DENIES: Abdominal pain, Black stools, Bloody stools, Constipation, Diarrhea, Nausea, Vomiting, Difficulty Swallowing, Anorexia Genitourinary: DENIES: Sexual dysfunction, Urinary frequency, Urinary incontinence, Urgency, Hematuria, Dysuria, Nocturia, Penile Discharge, Testicular Pain, Testicular Swelling Musculoskeletal: DENIES: Joint pain, Muscle aches, Stiffness, Joint Swelling, Back pain, Neck pain Integumentary: DENIES: Abnormal pigmentation, Nail changes, Pruritus, Rash Hematologic/lymphatic: DENIES: Bruising, Lymphadenopathy Immunologic/allergic: DENIES: Eczema, Urticaria Neurologic: DENIES: Abnormal gait, Headache, Localized weakness, Paresthesias, Seizures, Speech Problems, Tremor, Poor Balance Psychiatric: DENIES: Anxiety, Confusion, Mood changes, Depression, Hallucinations, Agitation, Suicidal Ideation, Homicidal Ideation, Delusions Past Family Social History Coded Allergies: No Known Allergies (Unverified , 07/07/16) Active Scripts Azithromycin 250 Mg [id number] Mg PO DAILY #4 TAB Ref 0 first dose 07/09 Prov:Elsa Urbina MD 07/08/16 Reported Medications Ferrous Sulfate (Iron)325 Mg [id number] Mg PO DAILY Ref 0 Take 07/07/16 Folic Acid 5 Mg Cap1 Mg PO DAILY Ref 0 07/07/16 Family History He denies psychiatric family history Social History Patient was born and raised in [place], he lives with family [place], employed, , highest level of education is 11th grade, he has been incarcerated for times in the past, 2 times for about 2 years, one time for about 17 months, and other 6 months, different charges including drug possession, drug sales, assault "and others". Patient's Strengths (min. 2) Verbal communication Physical Exam On physical exam no EPS, no tremors, no stiffness, no withdrawal, no psychomotor agitation or retardation present Vital Signs Vital Signs Date Time Temp Pulse Resp B/P Pulse Ox O2 Delivery O2 Flow Rate FiO2 07/09/16 02:53 83 18 113/57 98 07/08/16 18:34 98.6 Lab Results Toxicology positive for and I resent cocaine, BAL was negative Mental Status Examination Appearance man, age appearing, fair hygiene, he is calm and cooperative Speech: Unremarkable Orientation: x3 Memory: Unremarkable Thought Process: Logical Thought Content: Unremarkable Hallucination Type: None Attention and Concentration: Good Suicidal Ideation: No Previous Suicide Attempts: No Homicidal Ideation: No Previous Homicide Attempts: No Judgment: WNL Affect: Good Mood: Appropriate Motor Activity: Normal gait Assessment & Plan Problem List: (1) Cocaine abuse ICD Code: F14.10 (2) Antisocial personality disorder ICD Code: F60.2 (3) Substance induced mood disorder Assessment & Plan: On psychiatric evaluation the patient today does not present any evidence of acute, concerning or significant objective or subjective symptomatology of depression, anxiety, bunny or psychosis. Patient is clinically sober now, he denies suicidal or homicidal ideation, he denies visual and auditory hallucinations. On longitudinal observation patient has been calm, cooperative, without any agitation or aggressive behavior reported. He is logical, coherent and relevant. Oriented 3. Recent suicidal gesture at home since to be mostly related with manipulative and antisocial behavior, exacerbated by substance intoxication. There are several elements and factors in his psychiatric history the suggested and underlying antisocial personality disorder. He does not meet criteria for psychiatric admission at this moment. Extensive support, motivation psycho education provided. [place] act will be lifted.. ICD Code: F19.94 Assessment & Plan Estimated LOS: Chapincito Saucedo MD Jul 09, 2016 12:22
== END 2016-07-09 09:42 | disposition home or self-care (01) ==
LOC: NEPE 17:53 → NEPJ 07-09 09:42
DX: T14.91 Suicide attempt (principal); J18.9 Pneumonia, unspecified organism; D57.1 Sickle-cell disease without crisis; R45.850 Homicidal ideations; Z86.11 Personal history of tuberculosis; X83.8XXA Intentional self-harm by other specified means, initial encounter; Y93.9 Activity, unspecified; Y92.59 Other trade areas as the place of occurrence of the external cause; Y99.9 Unspecified external cause status
CPT/HCPCS: 70498; 71010; 71260; 80053; 80307; 85025; 96365; 96366; 99284; J0456; J7050; Q9967